=== PATIENT | female | born 1990 | race Caucasian/White ===

== ENCOUNTER 2020-10-18 09:34 | Emergency (ER) | payer MEDICAID ==
[2020-10-18] MEDS ORDERED: Acetaminophen 500 MG Tab PO ONE (10:06)
--- NOTE | 2020-10-18 10:45 | CR ---
Indication: Shortness of breath Comparison: None available. Technique: Single AP view chest Findings: There is no focal consolidation, effusion, or pneumothorax. The cardiomediastinal silhouette is within normal limits. The bony thorax is grossly intact. Impression: No acute cardiopulmonary abnormality. Dictated by Emile Post MD @ 10/18/2020 10:42:[address] Emile Post @ Oct 18 2020 10:42AM
[2020-10-18 10:53] LABS: CORONAVIRUS COVID-19 NAA POSITIVE (NEGATIVE); INFLUENZA A NAA NEGATIVE (NEGATIVE); INFLUENZA B NAA NEGATIVE (NEGATIVE)
--- NOTE | 2020-10-18 11:08 | EDM.PDOC ---
ED HPI GENERAL MEDICAL PROBLEM - General Chief Complaint: Respiratory Problem Stated Complaint: COUGHING SOB CHEST PAIN Time Seen by Provider: 10/18/20 09:44 - History of Present Illness INITIAL COMMENTS - FREE TEXT/NARRATIVE: CHIEF COMPLAINT(S): Shortness of breath HISTORY OF PRESENT ILLNESS: This is a 30-year-old with a past medical history of epilepsy who comes to the emergency department with a chief complaint of shortne ss of breath. The patient states that for the last week she has been experiencing a bifrontal headache which she rates as 4-5 out of 10 not associated with any blurry vision, double vision, numbness, tingling, or weakness. She states that she was taking Tylenol and Motrin but the headache has since continued. She denies any nausea or vomiting but states over the last 2 days she has been experiencing shortness of breath with a dry cough. She states that the shortness of breath is worse when she takes a deep breath and that she has some mild discomfort in her chest. She denies any diaphoresis or radiation of this discomfort. She rates her discomfort as 4-5 out of 10. She denies any history of CAD or CHF. She denies any recent travel, recent surgery, prior history of DVT or PE. She denies any family history of CAD or sudden onset at young age. She denies any known Covid contacts. She denies any other symptoms. REVIEW OF SYSTEMS: Constitutional: Denies fever, chills. Eyes: Denies eye pain Ears, Nose, Mouth, & Throat: Denies earache Cardiovascular: Positive for chest discomfort. Denies chest pain Respiratory: Positive for shortness of breath and dry cough. Gastrointestinal: Denies Nausea, vomiting, diarrhea, hematochezia. Genitourinary: Denies hematuria Skin:Denies a rash MSK: Denies joint pain Neurological: Positive for headache. Denies blurred vision, diplopia, numbness, tingling, weakness Psychiatric: Denies depression PAST MEDICAL HISTORY: As per history of present illness and as reviewed below otherwise noncontributory. SURGICAL HISTORY: As per history of present illness and as reviewed below otherwise noncontributory. SOCIAL HISTORY: As per history of present illness and as reviewed below otherwise noncontributory. FAMILY HISTORY: As per history of present illness and as reviewed below otherwise noncontributory. EXAMINATION OF ORGAN SYSTEMS/BODY AREAS: Constitutional: Blood pressure was 118/68, heart rate 64, respiratory 16 with an oxygen saturation 1 her percent on room air. Temperature 36.6 General: Overall well-appearing woman who is in no acute distress Psychiatric: Appropriate mood and affect. Eyes: No scleral icterus or conjunctival erythema ENMT: Moist mucous membranes. No pharyngeal erythema Cardiovascular: Regular, rate, and rhythm. No gallops, murmurs, or rubs. Bilateral upper extremity pulses symmetric and intact. No peripheral edema. No JVD. Respiratory: Lungs clear to auscultation bilaterally. No wheezes, rales, or rhonchi. Anytime the patient takes a deep breath she does have a dry cough. There is no increased work of breathing. Patient speaking in full sentences. Gastrointestinal: Soft, non-tender, non-distended. Normoactive bowel sounds Genitourinary: No suprapubic tenderness Musculoskeletal: Normal range of motion. Skin: No lesions or abrasions. Neurological: AOx4. Strength 5/5 in bilateral upper and lower extremity. Gait appears normal. MEDICAL DECISION MAKING AND COURSE IN THE ED WITH INTERPRETATION/REVIEW OF DIAGNOSTIC STUDIES: This is a 30-year-old woman with a past medical history of epilepsy who comes to the emergency department with headache and 2 days of shortness of breath and dry cough who has stable vital signs. At this time we did obtain a screening EKG which did not reveal any acute signs of ischemia or abnormality. We will obtain a chest x-ray and a Covid swab. We will provide the patient with Tylenol for pain relief. I do not believe any further imaging or work-up is indicated. PERC Rule Age (>/=50): No (0) HR (>/=100): No (0) SaO2 on RA <95%: No (0) Unilateral Leg Swelling: No (0) Hemoptysis: No (0) Surgery/Trauma in last month requiring general anesthesia: No (0) Prior PE or DVT: : No (0) Hormone Use: No (0) PERC negative Since patient is PERC negative and pre-test probability <15%, there is no need for more intensive workup, <2% chance of PE Laboratory: Influenza negative. Covid positive. The radiological images were viewed by myself along with reading the report from the radiologist. Chest x-ray does not reveal an acute cardiopulmonary process. Time: 0939 Twelve-lead EKG interpreted by myself. Normal sinus rhythm at a rate of 56beats per minute. Normal axis. DC interval is 146ms. QRS duration is 92ms. ST segments are normal without elevations or depressions. No T wave inversions no Q waves present. Hypertrophy not noted. No prior EKGs in our system. Interpretation: Sinus rhythm After labs and imaging I did discuss the results with the patient. I did discuss with her quarantine at this time. I did provide her with a work excuse. 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 I did discuss strict return precautions with the patient. I did provide the patient with an albuterol prescription given that there is a possibility of bronchitis. She was amenable discharge at this time and had no further questions DISPOSITION: The patient was discharged home in stable condition. The patient will follow up with primary care physician in 3 to 5 days CONDITION: Fair PROCEDURES: None FINAL IMPRESSION(S)/DIAGNOSES: 1. Acute COVID-19 2. Acute headache likely secondary to #1 Lowell Dee M.D. chest Pain Score (Numeric/FACES): 3 - Related Data Allergies Allergy/AdvReac Type Severity Reaction Status Date / Time No Known Allergies Allergy Verified 10/18/20 09:55 Home Meds: Home Meds Albuterol [Ventolin HFA] 1 puff .XX Q4HR PRN #1 inhaler 10/18/20 [Rx] Topiramate [Topamax] 0 mg PO BEDTIME 10/18/20 [History] lamoTRIgine [Lamotrigine] 0 mg PO DAILY 10/18/20 [History] Social & Family History - Family History Family Medical History: No Pertinent Family History - Caffeine Use Caffeine Use: Reports: None - Recreational Drug Use Recreational Drug Use: No ED ROS GENERAL - Review of Systems Review Of Systems: See Below ED EXAM, GENERAL - Physical Exam Exam: See Below Course - Vital Signs Last Recorded V/S: Last Vital Signs Temp 36.6 C 10/18/20 09:40 Pulse 62 10/18/20 11:52 Resp 14 10/18/20 11:52 BP 101/62 10/18/20 11:52 Pulse Ox 97 10/18/20 11:52 - Orders/Labs/Meds Labs: Laboratory Tests 10/18/20 Range/Units 10:00 Influenza Type A RNA NEGATIVE (NEGATIVE) Influenza Type B RNA NEGATIVE (NEGATIVE) SARS-CoV-2 RNA ([place]IS[place]S) POSITIVE H (NEGATIVE) Meds: Medications Discontinued Medications Generic Name Dose Route Start Last Admin Trade Name Freq PRN Reason Stop Dose Admin Acetaminophen 1,000 mg 10/18/20 10:06 10/18/20 10:54 Acetaminophen 500 Mg Tab PO 10/18/20 10:07 1,000 mg ONETIME ONE Administration Departure - Departure Time of Disposition: 11:07 Disposition: Home, Self-Care 01 Condition: Fair Clinical Impression: COVID-19 - Discharge Information *PRESCRIPTION DRUG MONITORING PROGRAM REVIEWED*: No *COPY OF PRESCRIPTION DRUG MONITORING REPORT IN PATIENT ELLIE: No Prescriptions: Albuterol [Ventolin HFA] 1 puff .XX Q4HR PRN #1 inhaler PRN Reason: Wheezing Instructions: COVID-19, 10 Things You Can Do to Manage Your COVID-19 Symptoms at Home - [facility], COVID-19: How to Protect Yourself and Others - [facility] Referrals: PCP,None [Primary Care Provider] - Forms: ED Department Discharge Additional Instructions: You evaluate today on an emergent basis. At this time you were diagnosed with Covid. I do recommend that you quarantine for 10 days. Please use Tylenol and Motrin for headache and fever relief. You may use [id number] cough syrup or honey for the cough. If you have any worsening shortness of breath please return to the emergency department. [facility] [address] [place] [address] [place] [address] The patient is informed of any results of their evaluation and diagnostic workup and all questions are answered. They are given discharge instructions and return precautions. The patient is stable for discharge. The patient states they understand and agree with the plan and that they will return if their symptoms get worse or if they have any new concerns. The following information is given to patients seen in the emergency department who are being discharged to home. This information is to outline your options for follow-up care. We provide all patients seen in our emergency department with a follow-up referral. The need for follow-up, as well as the timing and circumstances, are variable depending upon the specifics of your emergency department visit. If you don't have a primary care physician on staff, we will provide you with a referral. We always advise you to contact your personal physician following an emergency department visit to inform them of the circumstance of the visit and for follow-up with them and/or the need for any referrals to a consulting spec ialist. The emergency department will also refer you to a specialist when appropriate. This referral assures that you have the opportunity for follow-up care with a specialist. All of these measure are taken in an effort to provide you with optimal care, which includes your follow-up. Under all circumstances we always encourage you to contact your private physician who remains a resource for coordinating your care. When calling for follow-up care, please make the office aware that this follow-up is from your recent emergency room visit. If for any reason you are refused follow-up, please contact the [facility] Emergency Department at and asked to speak to the emergency department charge nurse. Sepsis Event Note (ED) - Evaluation Sepsis Screening Result: No Definite Risk - Focused Exam Vital Signs: Vital Signs Temp Pulse Resp BP Pulse Ox 10/18/20 11:52 62 14 101/62 97 10/18/20 09:40 36.6 C 64 16 118/68 100
== END 2020-10-18 11:45 | disposition home or self-care (01) ==
LOC: MW.ED 09:34
DX: U07.1 COVID-19 (principal)
CPT/HCPCS: 0240U; 71045; 93005; 99285; A9270; 93010; 99283

== ENCOUNTER 2024-08-21 13:45 | Emergency (ER) | payer MEDICAID ==
[2024-08-21] MEDS: Sodium Chloride 0.9% 1,000 ML IV SCH (14:49)
[2024-08-21] MEDS: Metoclopramide 10 MG/2 ML SDV IVPUSH ONE (14:50)
[2024-08-21] MEDS: Meclizine 25 MG Tab PO ONE (14:50)
[2024-08-21 14:58] LABS: BASOPHILS ABSOLUTE AUTO 0.07 K/uL (0.00-0.20); BASOPHILS PERCENT AUTO 0.9 % (0.0-1.0); EOSINOPHILS ABSOLUTE AUTO 0.17 K/uL (0.00-0.45); EOSINOPHILS PERCENT AUTO 2.3 % (0.0-6.0); HEMATOCRIT 41.4 % (37.0-47.0); HEMOGLOBIN 12.3 g/dL (12.0-16.0); IMMATURE GRAN ABSOLUTE AUTO 0.08 K/uL (0.00-0.05); IMMATURE GRAN PERCENT AUTO 1.1 % (0.0-0.4); LYMPHOCYTES ABSOLUTE AUTO 1.79 K/uL (1.00-4.80); LYMPHOCYTES PERCENT AUTO 23.7 % (24.0-44.0); MEAN CORPUSCULAR HEMOGLOBIN 20.9 pg (28.0-32.0); MEAN CORPUSCULAR VOLUME 70.3 fL (83.0-99.0); MEAN PLATELET VOLUME 9.7 fL (9.4-12.3); MONOCYTES ABSOLUTE AUTO 0.52 K/uL (0.00-0.80); MONOCYTES PERCENT AUTO 6.9 % (0.0-8.0); NEUTROPHILS ABSOLUTE AUTO 4.92 K/uL (1.80-7.70); NEUTROPHILS PERCENT AUTO 65.1 % (41.0-71.0); PLATELET COUNT,PLT 473 K/uL (150-400); RED BLOOD CELL COUNT 5.89 M/uL (4.10-5.30); WHITE BLOOD CELL COUNT,WBC 7.55 K/uL (3.9-11.3)
[2024-08-21 15:17] LABS: MEAN CORPUSCULAR HGB CONC 29.7 g/dL (32.0-36.0)
[2024-08-21 15:33] LABS: A/G RATIO 0.8 (0.9-1.6); ALANINE AMINOTRANSFERASE,ALT 96 IU/L (14-63); ALBUMIN 3.6 g/dL (3.4-5.0); ALKALINE PHOSPHATASE 78 U/L (46-116); ASPARTATE AMNIOTRANSFERASE,AST 20 IU/L (15-37); BILIRUBIN TOTAL 0.3 mg/dL (0.2-1.0); BLOOD UREA NITROGEN,BUN 9 mg/dL (7.0-18.0); CALCIUM 9.1 mg/dL (8.5-10.1); CARBON DIOXIDE,CO2 24.3 mmol/L (21.0-32.0); CHLORIDE,CL 104 mmol/L (98-107); EST CRCL DRUG DOSING (CG) 58.69 mL/min; GLUCOSE RANDOM 99 mg/dL (74-106); MAGNESIUM 2.2 mg/dL (1.8-2.4); PROTEIN TOTAL,TP 8.1 g/dL (6.4-8.2); SODIUM,NA 140 mmol/L (136-145)
[2024-08-21 15:43] LABS: ESTIMATED GFR 75 mL/min (>60)
== END 2024-08-21 16:22 | disposition home or self-care (01) ==
LOC: MW.ED 13:45
DX: R42 Dizziness and giddiness (principal); R20.2 Paresthesia of skin; Z79.51 Long term (current) use of inhaled steroids; Z79.899 Other long term (current) drug therapy
CPT/HCPCS: 36415; 70450; 71046; 80053; 83735; 84484; 84703; 85025; 96361; 96374; 99284; A9270; J2765; J7030